=== PATIENT | male | born 1940 | race Caucasian/White ===

== ENCOUNTER → 2022-12-23 | Day surgery (SDC) | payer MEDICARE ==
[~2022-12-23] VITALS: Ht 185.4 cm; Wt 55.9 kg
[~2022-12-23] MED LIST: ALBU6.7H6 INH; AMLO2.5T3 PO; ASPI81TA26 PO; LORA-1041 PO; PANT40TA29 PO; TAMS1CAP17 PO; TREL1AER IN; VITA100093 PO
[2022-12-23 12:38] VITALS: BP 124/70; O2SAT 98
== END | disposition home or self-care (01) ==
LOC: M OPP 09:18
PROVIDERS: ATTEND Internal Medicine Gastroenterology
DX: K44.9 Diaphragmatic hernia without obstruction or gangrene (principal); K22.2 Esophageal obstruction; K29.70 Gastritis, unspecified, without bleeding; R13.14 Dysphagia, pharyngoesophageal phase; Z79.1 Long term (current) use of non-steroidal anti-inflammatories (NSAID); Z79.51 Long term (current) use of inhaled steroids; Z79.82 Long term (current) use of aspirin; Z79.899 Other long term (current) drug therapy; Z87.891 Personal history of nicotine dependence

== ENCOUNTER → 2024-02-11 | Outpatient (CLI) | payer MEDICARE | LOC: M RAD 10:47 | PROVIDERS: ATTEND Podiatrist Foot & Ankle Surgery | DX: I73.89 Other specified peripheral vascular diseases (principal) ==